=== PATIENT | male | born 1945 | race Caucasian/White ===

== ENCOUNTER → 2017-07-13 | Outpatient (CLI) | payer MEDICARE ==
[2017-07-13 15:46] LABS: CH 29.8; CHCM 34.2; HCT 40.9 % (39.0-53.0); HGB 14.2 gm/dL (13.0-17.5); MCH 30.4 pg (25.0-35.0); MCHC 34.6 g/dL (31.0-37.0); MCV 87.8 fL (80.0-100.0); Mean Platelet Volume 8.6; RBC 4.66 m/uL (4.30-5.90); RDW 14.8 % (11.5-15.5); WBC 4.9 k/uL (3.8-10.6)
[2017-07-13 15:55] LABS: Partial Thromboplastin Time 25.8 sec (22.0-30.0); Prothrombin Time 10.5 sec (9.0-12.0)
[2017-07-13 15:59] LABS: ALT 43 U/L (21-72); AST 18 U/L (17-59); Alkaline Phosphatase 54 U/L (38-126); Anion Gap 11 mmol/L; Blood Urea Nitrogen 9 mg/dL (9-20); Calcium 9.4 mg/dL (8.4-10.2); Carbon Dioxide 23 mmol/L (22-30); Chloride 108 mmol/L (98-107); Glucose 88 mg/dL (74-99); Non-African American GFR(MDRD) >60 (>60 ml/min/1.73 sqM); Potassium 4.3 mmol/L (3.5-5.1); Sodium 142 mmol/L (137-145); Total Bilirubin 0.7 mg/dL (0.2-1.3); Total Protein 6.5 g/dL (6.3-8.2)
== END | disposition home or self-care (01) ==
LOC: LABPAT 14:56
PROVIDERS: ATTEND Orthopaedic Surgery
DX: Z01.812 Encounter for preprocedural laboratory examination (principal); Z79.01 Long term (current) use of anticoagulants; M17.12 Unilateral primary osteoarthritis, left knee
CPT/HCPCS: 36415; 80053; 85027; 85610; 85730; 87070

== ENCOUNTER 2017-07-24 10:16 | Inpatient (IN) | payer MEDICARE ==
[2017-07-17 12:53] VITALS: BMI 42.3
[~2017-07-24 10:16] MED LIST: ACETAMINOPHEN TAB 500 MG TAB PO ONE; DEXAMETHASONE SOD PHOSPHATE 10 MG/ML 1 ML VIAL IV ONE; HYDROmorphone 0.5 MG/0.5 ML SYRINGE IVP PRN; MELOXICAM 7.5 MG TAB PO ONE; MIDAZOLAM 2 MG/2 ML VIAL IV PRN; ONDANSETRON 4 MG/2 ML VIAL IVP ONE; TRANEXAMIC ACID 1,000 MG in SODIUM CHLORIDE 0.9% 100 ML IVPB ONE; ceFAZolin 3 GM in SODIUM CHLORIDE 0.9% 100 ML IVPB ONE
[2017-07-24] MEDS ORDERED: LACTATED RINGERS 1,000 ML IV ONE ×2 (13:20→18:30)
[2017-07-24 13:29] LABS: Glucose,Whole Blood 145 mg/dL (75-99)
[2017-07-24] MEDS ORDERED: fentaNYL (PF) 50 MCG/ML 2 ML AMP ONE (15:26)
[2017-07-24] MEDS ORDERED: MIDAZOLAM 2 MG/2 ML VIAL ONE (15:26)
[2017-07-24] MEDS ORDERED: PROPOFOL 10 MG/ML 20 ML VIAL IV ONE (15:26)
[2017-07-24] MEDS ORDERED: SODIUM CHLORIDE 0.9% 100 ML BAG ONE (15:26)
[2017-07-24] MEDS ORDERED: TRANEXAMIC ACID 1,000 MG/10 ML VIAL ONE (15:26)
[2017-07-24] MEDS: ROPIVACAINE 246.25 MG, EPINEPHrine 0.5 MG, KETOROLAC 30 MG, cloNIDine HCL/PF 80 MCG, WA... MISCELLANE ONE ×10 (16:04→16:59)
[2017-07-24] MEDS ORDERED: ceFAZolin 3,000 MG in SODIUM CHLORIDE 0.9% IRRIGATIO 3,000 ML IRRIGATION ONE (16:06)
[2017-07-24] MEDS ORDERED: BISACODYL 10 MG SUPP RECTAL PRN (17:55)
[2017-07-24] MEDS ORDERED: hydrOXYzine PAMOATE 25 MG CAP PO PRN (17:55)
[2017-07-24] MEDS ORDERED: NA PHOS,M-B/NA PHOS,DI-BA 133 ML ENEMA RECTAL PRN (17:55)
[2017-07-24] MEDS ORDERED: HYDROmorphone 0.5 MG/0.5 ML SYRINGE IVP PRN ×3 (17:55)
[2017-07-24] MEDS ORDERED: ONDANSETRON 4 MG/2 ML VIAL IVP PRN (17:55)
[2017-07-24] MEDS ORDERED: HYDROcodone/APAP 5-325MG 1 EACH TAB PO PRN ×2 (17:55)
[2017-07-24] MEDS ORDERED: MAGNESIUM HYDROXIDE 2,400 MG/10 ML CUP PO PRN (17:55)
[2017-07-24] MEDS ORDERED: NALOXONE 0.4 MG/ML 1 ML VIAL IV PRN (17:55)
[2017-07-24] MEDS ORDERED: ACETAMINOPHEN TAB 325 MG TAB PO PRN (17:55)
--- NOTE | 2017-07-24 18:24 | XR ---
PROCEDURE: XR knee limited LT- 2 views DATE AND TIME: 07/24/2017 6:07 PM REFERRING PHYSICIAN: Odette Hoffman CLINICAL INDICATION: PHH, Evaluation for Postop abnormality and alignment TECHNIQUE: Department protocol. COMPARISON: None FINDINGS: Stable lateral AP and lateral views were obtained showing post procedure changes. TKR is in place. No unexpected radiopaque foreign bodies. IMPRESSION: POSTOPERATIVE RADIOGRAPHIC EXAMINATION.
[2017-07-24 18:54] LABS: Glucose,Whole Blood 167 mg/dL (75-99)
[2017-07-24] MEDS ORDERED: ALBUTEROL NEBULIZED 2.5 MG/3 ML INHALATION PRN (19:26)
[2017-07-24] MEDS ORDERED: TRIAMCINOLONE ACET 0.1% OINTMENT 15 GM TUBE TOPICAL PRN (19:26)
[2017-07-24] MEDS: ASPIRIN 325 MG TAB PO SCH (20:27)
[2017-07-24] MEDS: INSULIN LISPRO (humaLOG) 300 UNIT/3 ML VIAL SQ SCH (20:39)
[2017-07-24 20:41] LABS: Glucose,Whole Blood 194 mg/dL (75-99)
[2017-07-24] MEDS ORDERED: ATORVASTATIN 10 MG TAB PO SCH (21:00)
[2017-07-24] MEDS ORDERED: SENNOSIDES-DOCUSATE SODIUM 1 EACH TAB PO SCH (21:00)
[2017-07-24] MEDS ORDERED: MONTELUKAST 10 MG TAB PO SCH (21:00)
[2017-07-24] MEDS: LACTATED RINGERS 1,000 ML IV SCH ×2 (21:37→21:38)
[2017-07-24] MEDS ORDERED: TEMAZEPAM 15 MG CAP PO PRN (22:00)
[2017-07-24] MEDS: ceFAZolin 2 GM in SODIUM CHLORIDE 0.9% 100 ML IVPB SCH (23:40)
[2017-07-25] MEDS: LACTATED RINGERS 1,000 ML IV SCH ×2 (05:27→05:42)
[2017-07-25 07:01] LABS: Glucose,Whole Blood 155 mg/dL (75-99)
[2017-07-25 07:28] LABS: Basophils % (A) 0 %; CH 29.4; CHCM 33.6; Eosinophils % (A) 0 %; HCT 39.7 % (39.0-53.0); HDW 3.23; HGB 13.3 gm/dL (13.0-17.5); Luc # (Auto) 0.12; Luc % (Auto) 1; Lymphocytes # (A) 0.5 k/uL (1.0-4.8); Lymphocytes % (A) 5 %; MCH 29.4 pg (25.0-35.0); MCHC 33.4 g/dL (31.0-37.0); Mean Platelet Volume 8.3; Monocytes # (A) 0.8 k/uL (0-1.0); Monocytes % (A) 7 %; Neutrophils # (A) 10.1 k/uL (1.3-7.7); Neutrophils % (A) 87 %; RBC 4.51 m/uL (4.30-5.90); RDW 14.5 % (11.5-15.5); WBC 11.6 k/uL (3.8-10.6); WBC (Perox) 12.64
[2017-07-25] MEDS ORDERED: GLIMEPIRIDE 2 MG TAB PO SCH (07:30)
[2017-07-25] MEDS ORDERED: metFORMIN 500 MG TAB PO SCH (07:30)
[2017-07-25] MEDS: ceFAZolin 2 GM in SODIUM CHLORIDE 0.9% 100 ML IVPB SCH (08:01)
[2017-07-25] MEDS: INSULIN LISPRO (humaLOG) 300 UNIT/3 ML VIAL SQ SCH (08:02)
[2017-07-25] MEDS: ASPIRIN 325 MG TAB PO SCH (08:04)
[2017-07-25] MEDS ORDERED: LOSARTAN 50 MG TAB PO SCH (09:00)
[2017-07-25] MEDS ORDERED: CALCIUM CARBONATE 500 MG CHEWABLE PO SCH (09:00)
[2017-07-25] MEDS ORDERED: buPROPion 100 MG TAB PO SCH (09:00)
[2017-07-25] MEDS ORDERED: METOPROLOL SUCCINATE (ER) 25 MG TAB.ER.24H PO SCH (09:00)
[2017-07-25] MEDS ORDERED: MELOXICAM 7.5 MG TAB PO SCH (09:00)
[2017-07-25] MEDS ORDERED: amLODIPine 10 MG TAB PO SCH (09:00)
[2017-07-25] MEDS ORDERED: FUROSEMIDE 40 MG TAB PO SCH (09:00)
[2017-07-25] MEDS ORDERED: DOXAZOSIN 2 MG TAB PO SCH (09:00)
[2017-07-25] MEDS ORDERED: CITALOPRAM HYDROBROMIDE 20 MG TAB PO SCH (09:00)
[2017-07-25 09:10] VITALS: BP 137/82; PULSE 57; RESP 15; TEMP 97.7
--- NOTE | 2017-07-25 09:16 | P.PN ---
Subjective Principal diagnosis: Status post left total knee arthroplasty This is a 71 year-old male post left total knee arthroplasty. This is post-op day 1. The patient was evaluated at the bedside today. The patient denies nausea, vomiting, abdominal pain, shortness of breath, and chest pain this morning. He states his pain is controlled at this time. The patient has not been up with physical therapy but has been up to the bathroom. Objective - Vital Signs Vital signs: Vital Signs Temp 97.7 F 07/25/17 07:00 Pulse 57 L 07/25/17 07:00 Resp 15 07/25/17 07:00 BP 137/82 07/25/17 07:00 Pulse Ox 97 07/25/17 07:00 Intake & Output 07/24/17 07/25/17 07/25/17 18:59 06:59 18:59 Intake Total 1076 850 Output Total 50 900 Balance 1026 -50 Intake: IV 1076 Intake, IV Titration 350 Amount Lactated Ringers 1,000 ml 350 @ 100 mls/hr IV .Q10H [facility] Rx#:[id number] Oral 500 Output: Urine 900 Estimated Blood Loss 50 Other: Voiding Method Urinal # Voids 1 - Exam The patient does not appear in acute distress. Alert and orientated x3. Dressing is clean dry and intact. Incision appears fine with no erythema or active drainage. Calf is soft and nontender. Good foot and ankle motion without difficulty. Sensation and circulatory status is intact. - Labs CBC & Chem 7: 07/25/17 06:53 Labs: Abnormal Lab Results - Last 24 Hours (Table) 07/24/17 07/24/17 07/24/17 Range/Units 13:26 18:52 20:09 WBC (3.8-10.6) k/uL Neutrophils # (1.3-7.7) k/uL Lymphocytes # (1.0-4.8) k/uL POC Glucose (mg/dL) 145 H 167 H 194 H (75-99) mg/dL 07/25/17 07/25/17 Range/Units 06:53 06:53 WBC 11.6 H (3.8-10.6) k/uL Neutrophils # 10.1 H (1.3-7.7) k/uL Lymphocytes # 0.5 L (1.0-4.8) k/uL POC Glucose (mg/dL) 155 H (75-99) mg/dL Assessment and Plan (1) Osteoarthritis of left knee Status: Acute (2) Status post left knee replacement Status: Acute Plan: 1. Continue pain control 2. Anticoagulation with Aspirin 3. Continue physical therapy and ambulation 4. Anticipate discharge home later today or tomorrow
[2017-07-25 11:42] LABS: Glucose,Whole Blood 149 mg/dL (75-99)
--- NOTE | 2017-07-28 08:17 | P.OP ---
Date of Procedure: 07/24/17 Procedure(s) Performed: PREOPERATIVE DIAGNOSIS: Left knee severe osteoarthritis with genu varum POSTOPERATIVE DIAGNOSIS: Left knee severe osteoarthritis with genu varum OPERATION: Left knee cemented total replacement arthroplasty. ANESTHESIA: Spinal ESTIMATED BLOOD LOSS: 100 ml. DIRECTOR OF REHABILITATION: Odette Hoffman PA-C (assistance with: patient positioning, retraction, exposure, hemostasis, leg positioning, implantation, irrigation, closure, dressing) COMPLICATIONS: None apparent. COMPONENTS IMPLANTED: Persona system from [employer] INDICATIONS: Mr. Johnson is a 71 year old male with a history of knee osteoarthritis. The operation of knee replacement has been discussed at length in the office, as well as potential risks and complications. These are inclusive of, but not limited to: bleeding, infection, scarring, discomfort, blood vessel and nerve damage, need for further surgery, failure to relieve symptoms, persistence, recurrence, or worsening of problems, loosening, dislocation, wear, blood clot, pulmonary embolism, , gait dysfunction, stiffness, and other risks as discussed in the office. The patient elects to proceed and the consent form has been signed. PROCEDURE: The patient was taken to the operating room and positioned on the operating room table in the supine position. Anesthesia was initiated. Care was taken to make sure that all pressure points were adequately padded. The operative lower extremity was prepped and draped in the usual aseptic fashion using DuraPrep. Ioban drape was used for the case and the patient received intravenous antibiotics within one hour of the incision. A pneumotourniquet and leg saul were used for the case. The limb was exsanguinated with an Esmarch bandage and the tourniquet was inflated to 350 mmHg. Time-out was called confirming the patient's identity, side, procedure and administration of antibiotics and TXA. The incision was then created midline directly over the knee, carried down through skin and into the subcutaneous tissues and down to fascia. Full thickness subcutaneous medial flap was developed. Medial parapatellar arthrotomy was performed and the interior of the knee was inspected. There was end-stage osteoarthritis of the knee with a mild to moderate genu varum type deformity. The fat pad was excised and proximal medial release on the tibia was completed using meticulous dissection and a curved osteotome. The anterior cruciate ligament was taken down. Note was made of significant attrition of the anterior and significant degenerative appearance of the posterior cruciate ligaments. The exposure was excellent. The knee was flexed 90 degrees and the patella was everted. A spot was chosen on the femur approximately 1 cm anterior to the posterior cruciate ligament insertion and an intramedullary hole was created within the femur. The intramedullary guide was then set to 5 degrees of valgus. The distal cutting block was attached and pinned into position. An appropriate amount of distal femoral resection was set. The oscillating saw was then used to make the distal femoral cut. This cut was confirmed to be flat with the flat end of an osteotome. The retractors were placed around the tibia and the tibial surface was addressed. The angle and depth of resection was adjusted using an extramedullary cutting guide. The guide had a built-in 3 degree posterior slope cut. Once the cutting guide was adjusted appropriately and in line with the axis of the tibia and confirmed to be in good position in relation to the second metatarsal and transmalleolar axis, the tibial cut was then created with protection of the posterior neurovascular structures and the collateral ligaments. The tibial cut surface was removed and sized. Femoral sizing was then accomplished using anterior referencing. Care was taken to analyze the posterior condyles for signs of deficiency or severe wear, and adjustments to the guide were made, as appropriate. 3 degree external rotation pins were placed. The cutting jig for the femur was applied to these pins. The planned cuts were further analyzed prior to performing them with the oscillating saw. No femoral notching was produced. Bone fragments were removed and the cut surfaces were finished, as necessary, with a reciprocating saw. Spacer block technique was then used to confirm that the flexion and extension gaps were equal. Soft tissue releases and adjustment of the tibial and/or femoral cuts were made, as necessary, until the gaps were equal. This included release of the posterior cruciate ligament, which was tight in this patient and , if left unreleased, would have resulted in poor kinematics and possibly early loosening. The femur was then further finished for a posterior cruciate ligament substituting component. Patellar resurfacing was performed using a reamer. The size of the required patellar component was estimated and the patellar surface was then reamed down to a residual thickness which would recreate the [place] thickness with the component. The placement of the patellar component was influenced by the degree of patellar subluxation, if any, noted on the preoperative x-rays. Prior to placing trial components, anesthetic solution consisting of ropivicaine with epinephrine, ketorolac, and clonidine was injected carefully and methodically in a grid pattern using aspiration technique into the soft tissue around the knee circumferentially, starting with the deeper tissues first and progressing to fascia, and then finally the skin/subcutaneous tissue. Particular care was taken when injecting the posterior capsule. The trial components were inserted. The tibial tray was allowed to self center and the patella was noted to track very well. The position of the tibial component was marked and the tibia was then finished for a stemmed tibial component. Cement containing tobramycin was mixed on the back table and applied to the final components. Trial components were removed and the cut surfaces of the bone were pulse lavaged thoroughly and dried. Cement was then applied to the tibial surface and pressurized into the surface using finger pressurization technique. The tibial component was then applied and excess cement was removed after it was impacted securely and noted to be flush with the cut surface. In similar fashion, the cement was applied to the cut femoral surface, pressurized in using finger pressurization and the component was impacted into place. Excess cement was removed. The polyethylene spacer was then implanted and locked into position. The patellar component was then applied in similar technique and a patellar clamp was used to hold the patella in place as the cement hardened. Once the cement had fully hardened, the knee was reinspected. Any other cement extrusion was removed and final kinematic testing showed range of motion from 0 to 130 degrees with excellent stability, both medially and laterally and appropriate alignment of the leg. Patellar tracking was excellent. The knee was then thoroughly pulse lavaged with normal saline. The tourniquet was deflated and hemostasis was obtained with electrocautery and IV tranexamic acid, 1 g given prior to inflation of the tourniquet and another gram given at the time of closure. Closure was with #2 Ethibond in the fascia and supplemented with #2 Quill, 2-0 Vicryl suture was used for the subcutaneous tissues and 3-0 Quill for the skin. Dermabond/Steri-Strips were then applied. A lightly compressive dressing was applied using Webril and an Jose wrap. The patient was then transferred to stretcher and taken to the recovery room in stable condition. Sponge and needle counts were correct.
--- NOTE | 2017-07-31 11:56 | P.DS ---
Providers Date of admission: 07/24/17 12:58 Expected date of discharge: 07/25/17 Attending physician: Valente Cárdenas Primary care physician: Elias García - Discharge Diagnosis(es) (1) Osteoarthritis of left knee Status: Acute (2) Status post left knee replacement Status: Acute Hospital Course: This is a 71 year-old male last seen in our office with complaints of left knee pain. The patient has a known history of degenerative arthritis of the [] knee and presented to discuss options. After discussion and consideration the patient elected to proceed with a [] total knee arthroplasty. The patient was seen preoperatively by Dr. García and cleared for surgery. The patient was admitted to [facility] on 07/24/2017 and underwent a left total knee arthroplasty by Dr. Cárdenas. The procedure was performed without complications or sequelae. The patient was seen and evaluated at bedside today. The patient's pain is well-controlled. The patient has no new complaints today denies any fevers, chills, nausea, vomiting, or shortness of breath. Vital signs are stable. The dressing is clean, dry and intact. Incision looks fine with no erythema or active drainage. Calf is soft and nontender. The patient has full ankle motion without difficulty. The patient' s left lower extremity is neurovascularly intact. The patient is orthopedically stable for discharge home today in good condition. Pertinent Studies: Laboratory Tests 07/25/17 06:53 WBC 11.6 H RBC 4.51 Hgb 13.3 Hct 39.7 Patient Condition at Discharge: Stable Plan - Discharge Summary New Discharge Prescriptions: New Aspirin 325 mg PO BID #120 tab HYDROcodone/APAP 5-325MG [Platina 5-325] 1 - 2 each PO Q4-6H PRN #90 tab PRN Reason: Pain Sennosides-Docusate Sodium [Senokot-S] 1 tab PO BID #60 tablet No Action Montelukast Sodium [Singulair] 10 mg PO HS metFORMIN HCL [Glucophage] 500 mg PO BID amLODIPine [Norvasc] 10 mg PO QAM HYDROcodone/APAP 7.5-325MG [Platina 7.5-325] 1 tab PO TID PRN PRN Reason: Pain Metoprolol Succinate (ER) [Toprol Xl] 25 mg PO QAM Furosemide [Lasix] 40 mg PO DAILY Doxazosin [Cardura] 2 mg PO QAM buPROPion [Wellbutrin] 100 mg PO QAM Atorvastatin Calcium [Lipitor] 10 mg PO HS Aspirin 325 mg PO DAILY Glimepiride [Amaryl] 2 mg PO BID Citalopram Hydrobromide [CeleXA] 40 mg PO QAM Triamcinolone Acetonide [Triamcinolone Acetonide 0.025%] 1 applic TOPICAL BID PRN PRN Reason: Rash Losartan Potassium 100 mg PO QAM Dapagliflozin Propanediol [Farxiga] 5 mg PO DAILY Calcium Carbonate [Calcium] 1,200 mg PO DAILY Albuterol Sulfate [Proair Respiclick] 1 puff PO RT-QID PRN PRN Reason: Shortness Of Breath Discharge Medication List Albuterol Sulfate [Proair Respiclick] 1 puff PO RT-QID PRN 07/17/17 [History] Aspirin 325 mg PO DAILY 07/17/17 [History] Atorvastatin Calcium [Lipitor] 10 mg PO HS 07/17/17 [History] Calcium Carbonate [Calcium] 1,200 mg PO DAILY 07/17/17 [History] Citalopram Hydrobromide [CeleXA] 40 mg PO QAM 07/17/17 [History] Dapagliflozin Propanediol [Farxiga] 5 mg PO DAILY 07/17/17 [History] Doxazosin [Cardura] 2 mg PO QAM 07/17/17 [History] Furosemide [Lasix] 40 mg PO DAILY 07/17/17 [History] Glimepiride [Amaryl] 2 mg PO BID 07/17/17 [History] HYDROcodone/APAP 7.5-325MG [Platina 7.5-325] 1 tab PO TID PRN 07/17/17 [History] Losartan Potassium 100 mg PO QAM 07/17/17 [History] Metoprolol Succinate (ER) [Toprol Xl] 25 mg PO QAM 07/17/17 [History] Montelukast Sodium [Singulair] 10 mg PO HS 07/17/17 [History] Triamcinolone Acetonide [Triamcinolone Acetonide 0.025%] 1 applic TOPICAL BID PRN 07/17/17 [History] amLODIPine [Norvasc] 10 mg PO QAM 07/17/17 [History] buPROPion [Wellbutrin] 100 mg PO QAM 07/17/17 [History] metFORMIN HCL [Glucophage] 500 mg PO BID 07/17/17 [History] Aspirin 325 mg PO BID #120 tab 07/24/17 [Rx] HYDROcodone/APAP 5-325MG [Platina 5-325] 1 - 2 each PO Q4-6H PRN #90 tab 07/24/17 [Rx] Sennosides-Docusate Sodium [Senokot-S] 1 tab PO BID #60 tablet 07/24/17 [Rx] Follow up Appointment(s)/Referral(s): Odette Hoffman, REJI [PHYSICIAN [facility]] - 08/09/17 3:45 pm [facility], [NON-STAFF] - Ambulatory/Diagnostic Orders: Continuous Passive Motion (CPM) Machine [DME.AMB1] Time Frame: 3 Weeks, Facility : [facility], Location: Case Management Activity/Diet/Wound Care/Special Instructions: May shower if no drainage from incision. May bear wt as tolerated w walker. CPM 5-6h daily. CPM through [facility] [phone] Please call when arrive home. Discharge Disposition: HOME WITH HOME HEALTH SERVICES
== END 2017-07-25 13:39 | disposition home health service (06) | DRG 470 ==
LOC: 2ORMAIN 12:58 → 3SUR 18:51
PROVIDERS: ADMIT Orthopaedic Surgery; ATTEND Orthopaedic Surgery
PROC: 0SRD0J9 Replacement of Left Knee Joint with Synthetic Substitute, Cemented, Open Approach (ICD-10-PCS; principal; 2017-07-24 15:15)
DX: M17.12 Unilateral primary osteoarthritis, left knee (principal); E11.9 Type 2 diabetes mellitus without complications; I10 Essential (primary) hypertension; E78.5 Hyperlipidemia, unspecified; Z79.82 Long term (current) use of aspirin; Z79.899 Other long term (current) drug therapy; F32.9 Major depressive disorder, single episode, unspecified; Z82.49 Family history of ischemic heart disease and other diseases of the circulatory system; Z87.891 Personal history of nicotine dependence; J45.909 Unspecified asthma, uncomplicated; M21.162 Varus deformity, not elsewhere classified, left knee; Z79.84 Long term (current) use of oral hypoglycemic drugs; Z79.1 Long term (current) use of non-steroidal anti-inflammatories (NSAID); Z79.891 Long term (current) use of opiate analgesic
CPT/HCPCS: 85025; 88300; 94760

== ENCOUNTER → 2017-08-03 | Outpatient (CLI) | payer MEDICARE ==
--- NOTE | 2017-08-03 14:46 | US ---
EXAMINATION TYPE: US venous doppler duplex LE LT DATE OF EXAM: 08/03/2017 2:36 PM COMPARISON: NONE CLINICAL HISTORY: M25.562Pain left knee pain after joint replacement. Pt states left leg pain s/p lef t total knee SIDE PERFORMED: Left TECHNIQUE: The lower extremity deep venous system is examined utilizing real time linear array sonog cecilia with graded compression, doppler sonography and color-flow sonography. VESSELS IMAGED: External Iliac Vein (EIV) Common Femoral Vein Deep Femoral Vein Greater Saphenous Vein * Femoral Vein Popliteal Vein Small Saphenous Vein * Proximal Calf Veins (* superficial vessels) Grayscale, color doppler, spectral doppler imaging performed of the deep veins of the lower extremity . There is normal flow, compressibility, vascular waveforms. Results called to Mee at Dr's office at time of exam IMPRESSION: Left Leg: Negative for DVT
== END | disposition home or self-care (01) ==
LOC: RADUSWWP 14:09
PROVIDERS: ATTEND Orthopaedic Surgery
DX: M25.562 Pain in left knee (principal); M79.662 Pain in left lower leg; E11.9 Type 2 diabetes mellitus without complications; Z47.1 Aftercare following joint replacement surgery

== ENCOUNTER 2018-07-09 01:34 | Emergency (ER) | payer MEDICARE ==
[2018-07-09] MEDS ORDERED: SODIUM CHLORIDE 0.9% 1,000 ML IV ONE (01:55)
[2018-07-09 02:28] LABS: Basophils % (A) 1 %; Eosinophils # (A) 0.2 k/uL (0-0.7); Eosinophils % (A) 4 %; HCT 45.5 % (39.0-53.0); HGB 15.6 gm/dL (13.0-17.5); Lymphocytes # (A) 0.8 k/uL (1.0-4.8); Lymphocytes % (A) 12 %; MCH 29.4 pg (25.0-35.0); MCHC 34.3 g/dL (31.0-37.0); MCV 85.7 fL (80.0-100.0); Mean Platelet Volume 8.5; Monocytes # (A) 0.6 k/uL (0-1.0); Monocytes % (A) 9 %; Neutrophils # (A) 4.5 k/uL (1.3-7.7); Neutrophils % (A) 73 %; Platelet Count 137 k/uL (150-450); RBC 5.32 m/uL (4.30-5.90); RDW 13.8 % (11.5-15.5); WBC 6.2 k/uL (3.8-10.6)
--- NOTE | 2018-07-09 02:30 | ED ---
Overdose HPI - General Source: patient, EMS Mode of arrival: EMS Limitations: altered mental status <Alem Carrasco - Last Filed: 07/09/18 03:55> <Tracy Altman - Last Filed: 07/10/18 07:54> - General Chief Complaint: Overdose Stated Complaint: Medication reaction Time Seen by Provider: 07/09/18 01:39 - History of Present Illness Initial Comments: 72-year-old male patient presents to the emergency department today for evaluation after having an episode at home refill like he could not breathe. Patient states that just shortly prior to this episode he did ingest a marijuana edible candy. Patient states that he usually eats only a half but this time he ate a whole candy. States that shortly after, he felt like his body was numb and that he couldn't breathe. Patient's reports that he was stumbling through the house, spilled his serial all over the floor. States he was acting confused. Patient does have an extensive medical history including hypertension and diabetes. Denies any chest pain or shortness of breath currently. Patient states he continues to feel like his body is numb and that he is "high". Patient denies any recent rash, fever, chills, shortness breath, chest pain, abdominal pain, nausea, vomiting, diarrhea, constipation, back pain , numbness, tingling, dizziness, weakness, hematuria, dysuria, urinary urgency, urinary frequency, headache, visual changes, or any other complaints. (Alem Carrasco) - Related Data Home Medications Medication Instructions Recorded Confirmed Albuterol Sulfate [Proair 1 puff PO RT-QID PRN 07/17/17 07/24/17 Respiclick] Aspirin 325 mg PO DAILY 07/17/17 07/24/17 Atorvastatin Calcium [Lipitor] 10 mg PO HS 07/17/17 07/24/17 Calcium Carbonate [Calcium] 1,200 mg PO DAILY 07/17/17 07/24/17 Citalopram Hydrobromide [CeleXA] 40 mg PO QAM 07/17/17 07/24/17 Dapagliflozin Propanediol [Farxiga] 5 mg PO DAILY 07/17/17 07/24/17 Doxazosin [Cardura] 2 mg PO QAM 07/17/17 07/24/17 Furosemide [Lasix] 40 mg PO DAILY 07/17/17 07/24/17 Glimepiride [Amaryl] 2 mg PO BID 07/17/17 07/24/17 HYDROcodone/APAP 7.5-325MG [[place] 1 tab PO TID PRN 07/17/17 07/24/17 7.5-325] Losartan Potassium 100 mg PO QAM 07/17/17 07/24/17 Metoprolol Succinate (ER) [Toprol 25 mg PO QAM 07/17/17 07/24/17 Xl] Montelukast Sodium [Singulair] 10 mg PO HS 07/17/17 07/24/17 Triamcinolone Acetonide 1 applic TOPICAL BID PRN 07/17/17 07/24/17 [Triamcinolone Acetonide 0.025%] amLODIPine [Norvasc] 10 mg PO QAM 07/17/17 07/24/17 buPROPion [Wellbutrin] 100 mg PO QAM 07/17/17 07/24/17 metFORMIN HCL [Glucophage] 500 mg PO BID 07/17/17 07/24/17 Previous Rx's Medication Instructions Recorded Aspirin 325 mg PO BID #120 tab 07/24/17 HYDROcodone/APAP 5-325MG [[place] 1 - 2 each PO Q4-6H PRN #90 tab 07/24/17 5-325] Sennosides-Docusate Sodium 1 tab PO BID #60 tablet 07/24/17 [Senokot-S] Allergies Allergy/AdvReac Type Severity Reaction Status Date / Time No Known Allergies Allergy Verified 07/24/17 18:25 Review of Systems ROS Other: All systems not noted in ROS Statement are negative. <Alem Carrasco M - Last Filed: 07/09/18 03:55> ROS Other: All systems not noted in ROS Statement are negative. <Tracy Altman - Last Filed: 07/10/18 07:54> ROS Statement: Those systems with pertinent positive or pertinent negative responses have been documented in the HPI. Past Medical History Past Medical History: Cancer, Diabetes Mellitus, GERD/Reflux, Hearing Disorder / Deafness, Hyperlipidemia, Hypertension, Osteoarthritis (OA), Sleep Apnea/CPAP/ BIPAP Additional Past Medical History / Comment(s): Hx prostate cancer with radiation treatment 2-3 yrs ago. Hx acid reflux, no current issues. Hard of hearing bilaterally. Uses CPAP. 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 Surgery for broken left ankle, right thumb surgery, left knee arthroscopy, left rotator cuff surgery. Past Anesthesia/Blood Transfusion Reactions: No Reported Reaction Additional Past Anesthesia/Blood Transfusion Reaction / Comment(s): "Had terrible pain from nerve block after thumb surgery for 2 months." Past Psychological History: Depression Smoking Status: Former smoker Past Alcohol Use History: Rare Past Drug Use History: Marijuana - Past Family History Father Family Medical History: Cancer Additional Family Medical History / Comment(s): Lung Cancer Sister(s) Family Medical History: Cancer Additional Family Medical History / Comment(s): Lung cancer <Alem Carrasco M - Last Filed: 07/09/18 03:55> General Exam Limitations: altered mental status General appearance: alert, in no apparent distress, other (This is a well- developed, well-nourished elderly male patient in no acute distress. Vital signs upon presentation are temperature 99.4F, pulse 75, respirations 19, blood pressure 151/86, pulse ox 97% on room air.) Eye exam: Present: normal appearance, PERRL, EOMI. Absent: scleral icterus, conjunctival injection, periorbital swelling ENT exam: Present: normal exam, normal oropharynx, mucous membranes moist Respiratory exam: Present: normal lung sounds bilaterally. Absent: respiratory distress, wheezes, rales, rhonchi, stridor Cardiovascular Exam: Present: regular rate, normal rhythm, normal heart sounds. Absent: systolic murmur, diastolic murmur, rubs, gallop, clicks GI/Abdominal exam: Present: soft, normal bowel sounds. Absent: distended, tenderness, guarding, rebound, rigid Neurological exam: Present: alert, oriented X3, CN II-XII intact Psychiatric exam: Present: normal affect, normal mood Skin exam: Present: warm, dry, intact, normal color. Absent: rash <Alem Carrasco M - Last Filed: 07/09/18 03:55> Vital Signs 07/09/18 07/09/18 01:38 04:03 Temperature 99.4 F 98.9 F Pulse Rate 75 65 Respiratory 19 18 Rate Blood Pressure 151/86 152/79 O2 Sat by Pulse 97 98 Oximetry Medical Decision Making - Lab Data Result diagrams: 07/09/18 02:17 07/09/18 02:17 - EKG Data -: EKG Interpreted by Me <Alem Carrasco - Last Filed: 07/09/18 03:55> - Lab Data Result diagrams: 07/09/18 02:17 07/09/18 02:17 <Tracy Altman - Last Filed: 07/10/18 07:54> - Medical Decision Making 72-year-old male patient presented to the emergency department today for evaluation after ingesting double his usual dose of marijuana edibles. Patient is reporting feeling "high" and numb. The patient did have an episode of trouble breathing at home prior to arrival. Labs reviewed and are unremarkable. Chest x-ray showed no acute cardio pulmonary process. EKG showed normal sinus rhythm. Upon reevaluation patient states he is feeling much better. He does feel comfortable being discharged home at this time. He is instructed to avoid using marijuana in the future. Is instructed to follow up with his primary care physician for recheck in 1-2 days. Return parameters discussed in detail. He verbalizes understanding and agrees with this plan (Alem Carrasco) I personally saw and examined the patient. I reviewed and agree with the mid- level provider findings including all diagnostic interpretations and treatment plans as written unless otherwise stated. I was present for stroud portions of any procedures performed. (Tracy Altman) - Lab Data Lab Results 07/09/18 07/09/18 07/09/18 Range/Units 02:17 02:17 02:17 WBC 6.2 (3.8-10.6) k/uL RBC 5.32 (4.30-5.90) m/uL Hgb 15.6 (13.0-17.5) gm/dL Hct 45.5 (39.0-53.0) % MCV 85.7 (80.0-100.0) fL MCH 29.4 (25.0-35.0) pg MCHC 34.3 (31.0-37.0) g/dL RDW 13.8 (11.5-15.5) % Plt Count 137 L (150-450) k/uL Neutrophils % 73 % Lymphocytes % 12 % Monocytes % 9 % Eosinophils % 4 % Basophils % 1 % Neutrophils # 4.5 (1.3-7.7) k/uL Lymphocytes # 0.8 L (1.0-4.8) k/uL Monocytes # 0.6 (0-1.0) k/uL Eosinophils # 0.2 (0-0.7) k/uL Basophils # 0.0 (0-0.2) k/uL PT (9.0-12.0) sec INR (<1.2) APTT (22.0-30.0) sec Sodium 139 (137-145) mmol/L Potassium 4.1 (3.5-5.1) mmol/L Chloride 104 (98-107) mmol/L Carbon Dioxide 25 (22-30) mmol/L Anion Gap 10 mmol/L BUN 12 (9-20) mg/dL Creatinine 0.86 (0.66-1.25) mg/dL Est GFR (CKD-EPI)AfAm >90 (>60 ml/min/1.73 sqM) Est GFR (CKD-EPI)NonAf 87 (>60 ml/min/1.73 sqM) Glucose 216 H (74-99) mg/dL Calcium 9.2 (8.4-10.2) mg/dL Total Bilirubin 0.9 (0.2-1.3) mg/dL AST 20 (17-59) U/L ALT 36 (21-72) U/L Alkaline Phosphatase 49 (38-126) U/L Total Creatine Kinase 90 (55-170) U/L CK-MB (CK-2) 1.2 (0.0-2.4) ng/mL CK-MB (CK-2) Rel Index 1.3 Troponin I <0.012 (0.000-0.034) ng/mL Total Protein 6.8 (6.3-8.2) g/dL Albumin 4.2 (3.5-5.0) g/dL 07/09/18 Range/Units 02:17 WBC (3.8-10.6) k/uL RBC (4.30-5.90) m/uL Hgb (13.0-17.5) gm/dL Hct (39.0-53.0) % MCV (80.0-100.0) fL MCH (25.0-35.0) pg MCHC (31.0-37.0) g/dL RDW (11.5-15.5) % Plt Count (150-450) k/uL Neutrophils % % Lymphocytes % % Monocytes % % Eosinophils % % Basophils % % Neutrophils # (1.3-7.7) k/uL Lymphocytes # (1.0-4.8) k/uL Monocytes # (0-1.0) k/uL Eosinophils # (0-0.7) k/uL Basophils # (0-0.2) k/uL PT 10.1 (9.0-12.0) sec INR 1.0 (<1.2) APTT 24.7 (22.0-30.0) sec Sodium (137-145) mmol/L Potassium (3.5-5.1) mmol/L Chloride (98-107) mmol/L Carbon Dioxide (22-30) mmol/L Anion Gap mmol/L BUN (9-20) mg/dL Creatinine (0.66-1.25) mg/dL Est GFR (CKD-EPI)AfAm (>60 ml/min/1.73 sqM) Est GFR (CKD-EPI)NonAf (>60 ml/min/1.73 sqM) Glucose (74-99) mg/dL Calcium (8.4-10.2) mg/dL Total Bilirubin (0.2-1.3) mg/dL AST (17-59) U/L ALT (21-72) U/L Alkaline Phosphatase (38-126) U/L Total Creatine Kinase (55-170) U/L CK-MB (CK-2) (0.0-2.4) ng/mL CK-MB (CK-2) Rel Index Troponin I (0.000-0.034) ng/mL Total Protein (6.3-8.2) g/dL Albumin (3.5-5.0) g/dL - EKG Data EKG Comments: EKG obtained at 0217 shows normal sinus rhythm with a ventricular rate of 70, [place] interval 140, QRS duration 108, QTC 424, QTC 457. No evidence of ST elevation or depression. (Alem Carrasco) Disposition Is patient prescribed a controlled substance at d/c from ED?: No Time of Disposition: :55 <Alem Carrasco M - Last Filed: 07/09/18 03:55> <Tracy Altman - Last Filed: 07/10/18 07:54> Clinical Impression: Marijuana intoxication Disposition: HOME SELF-CARE Condition: Good Instructions: Cannabis Abuse (ED) Additional Instructions: Follow-up with your primary care physician for recheck in 1-2 days. Return here immediately for any new, worsening, or concerning symptoms. Referrals: Elias García MD [Primary Care Provider] - 1-2 days
[2018-07-09 02:37] LABS: ALT 36 U/L (21-72); AST 20 U/L (17-59); Albumin 4.2 g/dL (3.5-5.0); Alkaline Phosphatase 49 U/L (38-126); Anion Gap 10 mmol/L; Blood Urea Nitrogen 12 mg/dL (9-20); Calcium 9.2 mg/dL (8.4-10.2); Carbon Dioxide 25 mmol/L (22-30); Chloride 104 mmol/L (98-107); Glucose 216 mg/dL (74-99); Partial Thromboplastin Time 24.7 sec (22.0-30.0); Potassium 4.1 mmol/L (3.5-5.1); Prothrombin Time 10.1 sec (9.0-12.0); Sodium 139 mmol/L (137-145); Total Bilirubin 0.9 mg/dL (0.2-1.3); Total Protein 6.8 g/dL (6.3-8.2)
[2018-07-09 02:47] LABS: Creatine Kinase 90 U/L (55-170)
[2018-07-09 02:59] LABS: Creatine Kinase MB 1.2 ng/mL (0.0-2.4); Troponin I <0.012 ng/mL (0.000-0.034)
--- NOTE | 2018-07-09 03:37 | XR ---
EXAMINATION TYPE: XR chest 2V DATE OF EXAM: 07/09/2018 COMPARISON: 11/07/2011 HISTORY: Chest pain TECHNIQUE: Frontal and lateral views of the chest are obtained. FINDINGS: There is no heart failure nor confluent pneumonic infiltrate. Costophrenic angles are armond r. Bony thorax is intact. IMPRESSION: Normal chest. No change.
[2018-07-09 04:08] VITALS: BP 152/79; PULSE 65; RESP 18; TEMP 98.9
== END 2018-07-09 04:03 | disposition home or self-care (01) ==
LOC: EC 01:34
DX: F12.920 Cannabis use, unspecified with intoxication, uncomplicated (principal); E11.9 Type 2 diabetes mellitus without complications; E78.5 Hyperlipidemia, unspecified; I10 Essential (primary) hypertension; F32.9 Major depressive disorder, single episode, unspecified; G47.30 Sleep apnea, unspecified; Z99.89 Dependence on other enabling machines and devices; Z85.46 Personal history of malignant neoplasm of prostate; Z87.891 Personal history of nicotine dependence; Z79.82 Long term (current) use of aspirin; Z79.84 Long term (current) use of oral hypoglycemic drugs; Z79.899 Other long term (current) drug therapy
CPT/HCPCS: 36415; 71046; 80053; 82550; 82553; 84484; 85025; 85610; 85730; 93005; 96360; 99284

== ENCOUNTER → 2020-08-21 | Outpatient (CLI) | payer MEDICARE | END | disposition home or self-care (01) | LOC: LABWHC1 11:28 | PROVIDERS: ATTEND Urology | DX: C61 Malignant neoplasm of prostate (principal) | CPT/HCPCS: 36415; 84153 ==